=== PATIENT | male | born 1975 | race Caucasian/White ===

== ENCOUNTER 2021-10-27 22:34 | Emergency (ER) | payer OTHER ==
[~2021-10-27] VITALS: Ht 185.4 cm; Wt 94.3 kg
[2021-10-27 22:45] VITALS: BP_SYST 124
--- NOTE | 2021-10-27 22:45 | NUR ---
Pt BIB BLS, placed to ER hallway and remains on ambulance gurney awaiting bed placement.
--- NOTE | 2021-10-27 22:55 | NUR ---
Dr. Bender at bedside assessing pt.
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
--- NOTE | 2021-10-27 23:10 | NUR ---
Pt placed to ER bed 04.
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
--- NOTE | 2021-10-28 01:15 | NUR ---
Suture setup at bedside.
[2021-10-28] MEDS ORDERED: LIDOCAINE/EPI 2% 1:100000 20 ML VIAL INJ ONE (02:29)
--- NOTE | 2021-10-28 02:50 | NUR ---
Dr. Bender at bedside to perform lac repair.
--- NOTE | 2021-10-28 03:00 | NUR ---
Pt refused bacitracin and application of dressing to wound. Laceration appears well approximated with sutures, no bleeding noted to site.
[2021-10-28] MEDS: LIDOCAINE/EPI 2% 1:100000 20 ML VIAL INJ ONE (03:16)
[2021-10-28] MEDS ORDERED: BACI15OI13 TP (03:20)
[2021-10-28] MEDS: BACITRACIN ZINC 15 GM TOPICAL OINTMENT TP ONE (03:26)
[2021-10-28] MEDS ORDERED: BACITRACIN 1 GM OINT TP ONE (03:45)
[2021-10-28 03:50] VITALS: BP_SYST 128
--- NOTE | 2021-10-28 03:50 | NUR ---
Patient given written and verbal discharge instructions and verbalizes understanding. ER MD discussed with patient the results and treatment provided. Patient in stable condition. ID arm band removed. Rx of Bacitracin sent electronically to preferred pharmacy. Patient educated on pain management and to follow up with PMD. Pain Scale 2/10. Opportunity for questions provided and answered. Medication side effect fact sheet provided.
== END 2021-10-28 03:50 | disposition home or self-care (01) ==
LOC: SED 22:34
DX: S01.81XA Laceration without foreign body of other part of head, initial encounter (principal); S01.511A Laceration without foreign body of lip, initial encounter; S09.90XA Unspecified injury of head, initial encounter; V49.49XA Driver injured in collision with other motor vehicles in traffic accident, initial encounter; Y93.89 Activity, other specified; Y92.89 Other specified places as the place of occurrence of the external cause; Y99.8 Other external cause status
CPT/HCPCS: 70450-TC; 70486-TC; 76376; 99285